=== PATIENT | male | born 1985 | race Caucasian/White ===

== ENCOUNTER 2017-04-02 14:46 | Emergency (ER) | payer OTHER ==
[2017-04-02 14:55] VITALS: BP 147/90
--- NOTE | 2017-04-02 15:27 | UC ---
Lower Extremity/Ankle HPI - HPI Summary HPI Summary: 31 yo male twisted right ankle 2 days ago swollen and ecchymotic able to bear wt with limp remote hx fx - History of Current Complaint Chief Complaint: UCLowerExtremity Stated Complaint: TWISTED RIGHT ANKLE Time Seen by Provider: 04/02/17 15:17 Hx Obtained From: Patient Onset/Duration: Sudden Onset Severity Initially: Moderate Severity Currently: Mild Pain Intensity: 4 Pain Scale Used: 0-10 Numeric Aggravating Factor(s): Standing Alleviating Factor(s): Rest, Elevation Able to Bear Weight: Yes Feet (Multiple View): 1 - tender/swollen/ecchymotic - Allergies/Home Medications Allergies/Adverse Reactions: Allergies Allergy/AdvReac Type Severity Reaction Status Date / Time No Known Allergies Allergy Verified 04/02/17 14:55 Home Medications: Home Medications NK [No Home Medications Reported] 04/02/17 [History Confirmed 04/02/17] PMH/Surg Hx/FS Hx/Imm Hx Previously Healthy: Yes - Surgical History Surgical History: Yes Surgery Procedure, Year, and Place: APPENDECTOMY, Left foot surgery 09/24 - Family History Known Family History: Positive: None Negative: Cardiac Disease, Hypertension, Diabetes - Social History Alcohol Use: Occasionally Substance Use Type: None Smoking Status (MU): Heavy Every Day Tobacco Smoker Type: Cigarettes Amount Used/How Often: 1/2 ppd Length of Time of Smoking/Using Tobacco: 10 years Have You Smoked in the Last Year: Yes Household Exposure Type: Cigarettes - Immunization History Most Recent Influenza Vaccination: no Review of Systems Constitutional: Negative Skin: Bruising Eyes: Negative ENT: Negative Respiratory: Negative Cardiovascular: Negative Gastrointestinal: Negative Genitourinary: Negative Motor: Negative Neurovascular: Negative Musculoskeletal: Arthralgia Neurological: Negative Psychological: Negative Is Patient Immunocompromised?: No All Other Systems Reviewed And Are Negative: Yes Physical Exam Triage Information Reviewed: Yes Appearance: Well-Appearing, No Pain Distress, Well-Nourished Vital Signs: Initial Vital Signs Temp 97.9 F 04/02/17 14:52 Pulse 89 04/02/17 14:52 Resp 16 04/02/17 14:52 BP 147/90 04/02/17 14:52 Pulse Ox 98 04/02/17 14:52 Vital Signs Reviewed: Yes Eyes: Positive: Conjunctiva Clear ENT: Positive: Hearing grossly normal. Negative: Nasal congestion, Nasal drainage, Tonsillar swelling, Tonsillar exudate, Muffled/hoarse voice Neck: Positive: Supple, Nontender Respiratory: Positive: Lungs clear, Normal breath sounds, No respiratory distress Cardiovascular: Positive: RRR, No Murmur Musculoskeletal: Positive: Other: - see image Neurological: Positive: Alert Psychological Exam: Normal Skin Exam: Normal Diagnostics - Radiology No standard instances Xray Interpretation: No Acute Changes - STS AND ROUNDED CALCIFATION AT BASE OF FIBULA Radiology Interpretation Completed By: ED Physician Lower Extremity Course/Dx - Differential Dx/Diagnosis Provider Diagnoses: ANKEL SPRAIN Discharge - Discharge Plan Condition: Stable Disposition: HOME Patient Education Materials: Ankle Sprain (ED) Referrals: Jeff Portillo MD [Medical Doctor] - 1 Week (IF NOT BETTER) BITA Cadet [Primary Care Provider] - 2 Weeks (BP SHOULD GET RECHECKED SOMETIME THIS FALL) Additional Instructions: ICE TWICE DAILY ADVIL OR ALEVE IF NEEDED RECHECK IN ONE WEEK IF NOT COMPLETELY BETTER WEAR YOUR WALKING BOOT
--- NOTE | 2017-04-02 16:17 | RAD ---
Indication: Right ankle pain. 3 views of the right ankle demonstrates soft tissue swelling laterally. Ankle mortise is intact. No fracture is noted. IMPRESSION: Soft tissue swelling laterally without evidence of fracture.
== END 2017-04-02 16:18 | disposition home or self-care (01) ==
LOC: UCCORT 14:46
DX: S93.401A Sprain of unspecified ligament of right ankle, initial encounter (principal); X50.1XXA Overexertion from prolonged static or awkward postures, initial encounter; Y93.9 Activity, unspecified; Y92.9 Unspecified place or not applicable; F17.210 Nicotine dependence, cigarettes, uncomplicated
CPT/HCPCS: 99211; G0463

== ENCOUNTER 2018-02-28 12:18 | Emergency (ER) | payer OTHER ==
[2018-02-28 13:19] VITALS: BP 124/97
--- NOTE | 2018-02-28 13:24 | UC ---
Back Pain HPI - HPI Summary HPI Summary: 32 y/o male presents to the urgent care c/o lower back pain radiating to left hip and left thigh s/p lifting a tire in to his truck yesterday afternoon. Pt states pain is 8/10 sharp and spasmodic w/ bending sitting or laying down. Pt has taken Ibuprofen PO 600mg PO last night to alleviate symptoms w/o any improvement. Pt denies numbness or tingling sensation over the left leg, saddle anesthesia, urinary or fecal incontinence, urinary symptoms, fever. flank pain, abdominal pain, SOB, chest pain, N/V/D. No Hx of back pain. - History of Current Complaint Chief Complaint: UCBackPain Stated Complaint: LOWER BACK/BILATERAL HIP PAIN Time Seen by Provider: 02/28/18 13:22 Hx Obtained From: Patient Onset/Duration: Sudden Onset, Lasting Days - 1 day, Still Present, Worse Since - this morning Timing: Constant Severity Initially: Moderate Severity Currently: Moderate Pain Intensity: 8 Pain Scale Used: 0-10 Numeric Back Pain: Is Discrete @ - lower back pain, Radiates To - left side of back and left hip Character: Sharp, Spasmodic Aggravating Factor(s): Lifting, Bending, Other - sitting Alleviating Factor(s): Rest, OTC Meds - Ibuprofen PO 600mg Associated Signs And Symptoms: Positive: Negative. Negative: Swelling, Redness , Bruising, Fever, Weakness, Numbness, Tingling, Abdominal Pain, Flank Pain, Bladder Incontinence, Bowel Incontinence, Weight Loss, Pain with Weight Bearing - Risk Factors AAA Risk Factors: Negative TAD Risk Factors: Negative Cauda Equina Risk Factors: Negative Epidural Abscess Risk Factors: Negative - Allergies/Home Medications Allergies/Adverse Reactions: Allergies Allergy/AdvReac Type Severity Reaction Status Date / Time No Known Allergies Allergy Verified 02/28/18 13:12 PMH/Surg Hx/FS Hx/Imm Hx Previously Healthy: Yes - Pt denies PMHX - Surgical History Surgical History: Yes Surgery Procedure, Year, and Place: APPENDECTOMY, Left foot surgery 09/24 - Family History Known Family History: Positive: None - Pt denies FMHX Negative: Cardiac Disease, Hypertension, Diabetes - Social History Occupation: Employed Full-time Lives: With Family Alcohol Use: Weekly Substance Use Type: None Smoking Status (MU): Heavy Every Day Tobacco Smoker Type: Cigarettes Amount Used/How Often: 1/2 ppd Length of Time of Smoking/Using Tobacco: 10 years Have You Smoked in the Last Year: Yes Household Exposure Type: Cigarettes - Immunization History Most Recent Influenza Vaccination: no Review of Systems Constitutional: Negative Skin: Negative Eyes: Negative ENT: Negative Respiratory: Negative Cardiovascular: Negative Gastrointestinal: Negative Genitourinary: Negative Motor: Negative Neurovascular: Negative Musculoskeletal: Decreased ROM - lower back, Other: - lower back pain radiating to left hip s/p heavy lifting Neurological: Negative Psychological: Negative Is Patient Immunocompromised?: No All Other Systems Reviewed And Are Negative: Yes Physical Exam - Summary Physical Exam Summary: Vital Signs Reviewed: Yes Appearance: Well-Appearing, Well-Nourished, obese male standing since he states pain is worse by sitting w/o any apparent distress. Eyes: Positive: Conjunctiva Clear - PERRLA, EOMI. ENT: Positive: Normal ENT inspection, Hearing grossly normal, Pharynx normal, TMs normal, Uvula midline Neck: Positive: Supple, Nontender, No Lymphadenopathy Respiratory: Positive: Chest non-tender, Lungs clear, Normal breath sounds, No respiratory distress Cardiovascular: Positive: RRR, No Murmur, Pulses Normal, Brisk Capillary Refill Abdomen Description: Positive: Nontender, No Organomegaly, Soft. Negative: CVA Tenderness (R), CVA Tenderness (L) Bowel Sounds: Positive: Present Musculoskeletal: Positive: Strength Intact, BACK: Patient walked into the urgent care room with symmetric ambulation, No signs of limping, antalgic, able to bear weight. No signs of trauma, No masses palpated. Point tenderness at the level of L5-S1 w/ left side paraspinal muscle tenderness at the same level and left hip, No CVAT, no flank ecchymosis . No sacroiliac notch tenderness, No saddle anesthesia.ROM: limited due to pain, Straight Leg Raise: unable to performe sicne Pt declines laying of the bed. Patellar reflexes: brisk, symmetric Muscle strength lower extremities. Dorsiflexion/ plantar flexion of ankles. Heel/ toe walk. Lower extremities: Femoral, popliteal, posterior tibial , and dorsalis pedis pulses WNL. Pt refuse rectal exam Neurological: Positive: Alert, Muscle Tone Normal Psychological Exam: Normal Skin Exam: Normal Triage Information Reviewed: Yes Vital Signs: Initial Vital Signs Temp 97.6 F 02/28/18 13:13 Pulse 84 02/28/18 13:13 Resp 17 02/28/18 13:13 BP 124/97 02/28/18 13:13 Pulse Ox 98 02/28/18 13:13 Back Pain Course/Dx - Course Course Of Treatment: 32 y/o male presents to the urgent care c/o lower back pain radiating to left hip and left thigh s/p lifting a tire in to his truck yesterday afternoon. Pt states pain is 8/10 sharp and spasmodic w/ bending sitting or laying down. Pt has taken Ibuprofen PO 600mg PO last night to alleviate symptoms w/o any improvement. Pt denies numbness or tingling sensation over the left leg, saddle anesthesia, urinary or fecal incontinence, urinary symptoms, fever. flank pain, abdominal pain, SOB, chest pain, N/V/D. No Hx of back pain. Hx obtained. PE: Point tenderness at the level of the L5-S1 and left paraspinal muscle spasm at the same level on examination. Lumbosacral X-ray ordered, Impression: Mild degenerative disc disease. Toradol IM inj ordered at the clinic. Given by nurse. Pt tolerated well IM inj and pain decrease. Pt Rx Medrol dose elif, Ibuprofen PO, flexeril PO to alelviate symptoms. Patient was instructed to the f/u wit orthopedic in 1 week if symptoms do not improve or worsen. Patient understands and agrees. Patient is able to ambulate freely w/o aid or limp. Pt's BP is elevated today advised to decrease salt in diet, monitor BP and f/u with PCP for further management. Plan of care was discussed with the patient and patient understands and agrees. All questions were answered at patient satisfaction. Pt left clinic hemodynamically stable. - Differential Dx/Diagnosis Differential Diagnosis/HQI/PQRI: Compressive Cord Syndrome, Fracture, Herniated Disc, Renal Colic, Strain, Sprain Provider Diagnoses: 1- Acute lower back pain s/p heavy lifting. 2- Acute lower back strain. 3- Degenerative disc disease. 2- Elevated BP w/o Hx of HTN Discharge - Sign-Out/Discharge Documenting (check all that apply): Patient Departure - D/c home - Discharge Plan Condition: Stable Disposition: HOME Prescriptions: Cyclobenzaprine TAB* [Flexeril 10 MG TAB*] 10 mg PO TID PRN #21 tab PRN Reason: Spasms - Back Ibuprofen TAB* [Motrin TAB* 800 MG] 800 mg PO Q6H PRN #30 tab PRN Reason: back pain methylPREDNISolone [Medrol Dosepak 4 MG*] 4 mg PO .SEE ELIF INSTRUCTION #1 elif Patient Education Materials: Low Back Strain (ED), Low-Sodium Diet (ED), Degenerative Disc Disease (ED) Referrals: [facility] [Provider Group] - 1 Week [facility]Outside] - 1 Week Additional Instructions: 1- Please take Medrol dose elif PO as directed and also Take Ibuprofen PO q6- 8hrs prn after meals for pain. 2- Take Flexeril PO as directed for muscle spasm. Please do not drive while taking the medication. 3- Wear a back support. Avoid strenuous exercise of heavy lifting. 4- Please follow up with Orthopedic Dr from [facility] or your PCP in 1 week if not improvement of symptoms, for further management. 5-Your BP is elevated today. please decrease salt in your diet, monitor BP and if it continues to be elevated please f/u with your PCP for further management - Billing Disposition and Condition Condition: STABLE Disposition: Home
[2018-02-28] MEDS ORDERED: Ketorolac INJ* 30 MG/ML 1 ML VIAL IM ONE (13:31)
--- NOTE | 2018-02-28 14:00 | RAD ---
HISTORY: acute lower back pain s/p heavy lifting COMPARISONS: None VIEWS: 5 , Frontal, lateral, coned-down lateral sacral, and bilateral oblique views of the lumbar spine. FINDINGS: ALIGNMENT: The alignment is normal. VERTEBRAL BODIES: The vertebral body heights are normal. The interpedicular distances are normal. There is minimal anterolateral marginal osteophyte formation. JOINTS: The facet joints are normal. INTERVERTEBRAL DISCS: There is mild diffuse loss of intervertebral disc height. SOFT TISSUE: Unremarkable. OTHER: The pelvis is unremarkable. The lung bases are clear. IMPRESSION: MILD DEGENERATIVE DISC DISEASE.
== END 2018-02-28 14:16 | disposition home or self-care (01) ==
LOC: UCCORT 12:18
DX: S39.012A Strain of muscle, fascia and tendon of lower back, initial encounter (principal); X50.0XXA Overexertion from strenuous movement or load, initial encounter; Y93.9 Activity, unspecified; Y92.9 Unspecified place or not applicable; M51.37 Other intervertebral disc degeneration, lumbosacral region; R03.0 Elevated blood-pressure reading, without diagnosis of hypertension; F17.210 Nicotine dependence, cigarettes, uncomplicated
CPT/HCPCS: 72110; 96372; 99212; G0463; J1885